=== PATIENT | female | born 1985 | race Caucasian/White ===

== ENCOUNTER 2017-04-19 22:17 | Emergency (ER) | payer OTHER ==
--- NOTE | 2017-04-19 22:33 | ED.PDOC ---
History of Present Illness - General Chief Complaint: Chest Pain/[place] Stated Complaint: chest pain Time Seen by Provider: 04/19/17 22:32 Source: patient Exam Limitations: no limitations - History of Present Illness Initial Comments: Jair Gomez 31 y/o female stated while laying down on her bed tonight she had onset of sharp achy pain which radiated to her back no diaphoresis,palpitations, sob ,[place].On arrival at the ER gradually went away Timing/Duration: 1-3 hours Severity/Quality: moderate, aching, sharp Location: central Chest Pain Radiation: back Activities at Onset: rest Prior Chest Pain/Cardiac Workup: no prior chest pain Worsening Factors: nothing Nitro Today/Relief: no nitro taken today Aspirin Treatment Today: provided by ED Associated Symptoms: denies symptoms Allergies/Adverse Reactions: Allergies NO KNOWN ALLERGY Allergy (Verified 04/19/17 23:06) Review of Systems - Review of Systems Constitutional: States: no symptoms reported EENTM: States: no symptoms reported Respiratory: States: no symptoms reported Cardiology: States: see HPI Gastrointestinal/Abdominal: States: no symptoms reported Genitourinary: States: no symptoms reported Musculoskeletal: States: no symptoms reported Skin: States: no symptoms reported Past Medical History (General) - Patient Medical History Hx Other PMH: Yes - hypothyroidism Surgical History: other - D and C-recent miscarriage-last month Family Medical History - Family History Father Hx Family Hypertension: Yes - parents Mother Family History: Unknown Physical Exam - Physical Exam General Appearance: Alert, Comfortable, No apparent distress Eyes, Ears, Nose, Throat Exam: PERRL/EOMI, normal ENT inspection, pharynx normal Neck: non-tender, supple Respiratory: chest non-tender, lungs clear, normal breath sounds Cardiovascular/Chest: normal peripheral pulses, regular rate, rhythm, no murmur Peripheral Pulses: radial,right: 2+, radial,left: 2+ Gastrointestinal/Abdominal: normal bowel sounds, non tender, soft, no organomegaly Extremity: normal range of motion, non-tender, no pedal edema, no calf tenderness Neurologic: alert, oriented x 3 Skin Exam: normal color, warm/dry Progress - Progress Progress: 04/20/17 00:46 Last Vital Signs Temp 9 F L 04/19/17 23:01 Pulse 58 L 04/19/17 23:01 Resp 20 04/19/17 23:01 BP 140/91 04/19/17 23:01 Pulse Ox 98 04/19/17 23:53 Laboratory Tests 04/19/17 04/19/17 04/19/17 00:05 22:45 22:45 WBC RBC Hgb Hct MCV MCH MCHC RDW Plt Count MPV Absolute Neuts (auto) Absolute Lymphs (auto) Absolute Monos (auto) Absolute Eos (auto) Absolute Basos (auto) Neutrophils % Lymphocytes % Monocytes % Eosinophils % Basophils % PT INR PTT (SP) Sodium Potassium Chloride Carbon Dioxide Anion Gap BUN Creatinine BUN/Creatinine Ratio Random Glucose Serum Osmolality Calcium Magnesium Creatine Kinase CK-MB (CK-2) CK-MB (CK-2) % Troponin I B-Natriuretic Peptide Serum HCG, Qual Negative Urine Opiates Screen Negative Urine Barbiturates Negative Ur Phencyclidine Scrn Negative U Amphetamin/Meth Scrn Negative U Benzodiazepines Scrn Negative U Cocaine Metab Screen Negative U Cannabinoids Screen Negative Ethyl Alcohol < 5.40 04/19/17 04/20/17 22:45 00:12 WBC 8.0 RBC 4.57 Hgb 13.9 Hct 40.8 MCV 89.2 MCH 30.4 MCHC 34.1 RDW 13.1 Plt Count 202 MPV 9.2 Absolute Neuts (auto) 3.30 Absolute Lymphs (auto) 3.70 H Absolute Monos (auto) 0.80 Absolute Eos (auto) 0.20 Absolute Basos (auto) 0.00 Neutrophils % 41.6 L Lymphocytes % 45.8 Monocytes % 10.0 H Eosinophils % 2.3 Basophils % 0.3 PT 10.3 INR 0.910 PTT (SP) 28.2 Sodium 137 Potassium 4.1 Chloride 106 Carbon Dioxide 27 Anion Gap 8.1 L BUN 12 Creatinine 0.65 BUN/Creatinine Ratio 18.5 Random Glucose 101 Serum Osmolality 273.7 L Calcium 9.6 Magnesium 1.9 Creatine Kinase 49 CK-MB (CK-2) 0.6 CK-MB (CK-2) % Not Reportable Troponin I < 0.02 < 0.02 B-Natriuretic Peptide 28.5 Serum HCG, Qual Urine Opiates Screen Urine Barbiturates Ur Phencyclidine Scrn U Amphetamin/Meth Scrn U Benzodiazepines Scrn U Cocaine Metab Screen U Cannabinoids Screen Ethyl Alcohol - EKG/XRAY/CT EKG: Sinus, no ST T wave changes Comments: HR -55;Sinus arrhythmia XRAY: chest - no acute disease Departure - Departure Clinical Impression: Chest pain Qualifiers: Chest pain type: unspecified Qualified Code(s): R07.9 - Chest pain, unspecified Time of Disposition: 01:04 Disposition: Discharge to Home or Self Care Condition: Good Departure Forms: ED Discharge - Pt. Copy, Patient Portal Self Enrollment Instructions: DI for Chest Pain Additional Instructions: RETURN TO EMERGENCY ROOM NEEDED;FOLLOW UP WITH PRIMARY MD in [place]; Continue with Zantac 75 mg-2 tablets by mouth am/pm
[2017-04-19] MEDS ORDERED: SODIUM CHLORIDE 0.9% 1000ML 1,000 ML IVS ONE (22:39)
--- NOTE | 2017-04-19 23:35 | RAD ---
Examination: XR CHEST 1 VIEW dated 04/19/2017 11:06 PM [employer] History: chest discomfort Comparison: None Technique: Frontal view of the chest Findings: The lungs are clear bilaterally. No pneumothorax or pleural effusion. The cardiomediastinal silhouette is within normal limits. No acute osseous abnormalities. Impression: No acute disease. Electronically signed by: Filippo Galaviz MD 04/19/2017 11:34 PM [employer]
[2017-04-19 23:54] VITALS: O2SAT 98
[2017-04-20 01:31] VITALS: BP 122/76; TEMP 97.1
== END 2017-04-20 01:33 | disposition home or self-care (01) ==
LOC: ER 22:17
DX: R07.9 Chest pain, unspecified (principal); E03.9 Hypothyroidism, unspecified